=== PATIENT | female | born 1975 | race Caucasian/White ===

== ENCOUNTER → 2020-10-17 | Outpatient (CLI) | payer OTHER ==
[~2020-10-17] MED LIST: ATENOLOL25 MG PO; BASAGLAR K100 UNIT/1 SC; BOOST GLUCOSE237 ML PO; ENDOCET 5-3251 EACH PO; FERROUS SULFAT325 MG PO; HUMALOG100 UNIT/3 SC; IBUPROFEN600 MG PO; LEVOTHYROXINE50 MCG PO; SIMVASTATIN10 MG PO; VITAMIN D350 MCG PO
[2020-10-17 11:28] LABS: BUN/CREATININE RATIO 22 (0-10)
[2020-10-18 07:10] LABS: CREATININE, URINE 31.5 mg/dL (Not Estab.)
[2020-10-18 17:11] LABS: ENDOMYSIAL ANTIBODY IGA Negative (Negative); IMMUNOGLOBULIN A, QN, SERUM 352 mg/dL (87-352); T-TRANSGLUTAMINASE (TTG) IGA 2 U/mL (0-3)
== END ==
LOC: LAB 10:18
PROVIDERS: Nurse Practitioner Family
DX: E10.65 Type 1 diabetes mellitus with hyperglycemia (principal)
CPT/HCPCS: 36415; 80053; 80061; 82043; 82570; 82784; 83036; 84439; 84443

== ENCOUNTER → 2020-12-14 | Day surgery (SDC) | payer OTHER ==
[~2020-12-14] VITALS: Ht 165.1 cm; Wt 64.4 kg
[2020-12-14 08:44] LABS: HEMOGLOBIN 12.5 gm/dl (12.3-15.3); RED BLOOD COUNT 4.58 M/UL (4.00-5.10); WHITE BLOOD COUNT 4.9 K/UL (4.5-11.0)
[2020-12-14 09:00] LABS: BUN/CREATININE RATIO 26 (0-10)
== END | disposition home or self-care (01) ==
LOC: OR 07:36
PROVIDERS: Obstetrics & Gynecology
DX: N80.0 Endometriosis of uterus (principal); N84.0 Polyp of corpus uteri; E10.65 Type 1 diabetes mellitus with hyperglycemia; E10.21 Type 1 diabetes mellitus with diabetic nephropathy; I10 Essential (primary) hypertension; E78.1 Pure hyperglyceridemia; F41.9 Anxiety disorder, unspecified; F32.9 Major depressive disorder, single episode, unspecified; E03.9 Hypothyroidism, unspecified; K21.9 Gastro-esophageal reflux disease without esophagitis; Z88.8 Allergy status to other drugs, medicaments and biological substances; Z88.5 Allergy status to narcotic agent; Z79.899 Other long term (current) drug therapy
CPT/HCPCS: 80048; 81001; 82962; 84703; 85025; 93005; J2550; J2795; J7030; J7120

== ENCOUNTER → 2021-02-20 | Outpatient (CLI) | payer OTHER ==
[2021-02-20 11:22] LABS: BUN/CREATININE RATIO 28 (0-10)
== END ==
LOC: LAB 09:37
PROVIDERS: Nurse Practitioner Family
DX: E10.65 Type 1 diabetes mellitus with hyperglycemia (principal)
CPT/HCPCS: 36415; 80053; 83036

== ENCOUNTER → 2022-02-26 | Day surgery (SDC) | payer OTHER ==
[~2022-02-26] MED LIST changes: +LANTUS SOL100 UNIT/1 SQ; +OMEGA-31000 MG PO
== END | disposition home or self-care (01) ==
LOC: OR 06:40
DX: R19.5 Other fecal abnormalities (principal); E10.9 Type 1 diabetes mellitus without complications; E03.9 Hypothyroidism, unspecified; E78.00 Pure hypercholesterolemia, unspecified; Z20.822 Contact with and (suspected) exposure to COVID-19; Z88.6 Allergy status to analgesic agent; Z88.5 Allergy status to narcotic agent; Z80.0 Family history of malignant neoplasm of digestive organs
CPT/HCPCS: 36415; 82962; 84703; J2001; J2704; J7040

== ENCOUNTER → 2022-03-12 | Day surgery (SDC) | payer OTHER ==
[~2022-03-12] MED LIST changes: +HYDROCODON-ACE1 EAC4 PO
== END | disposition home or self-care (01) ==
LOC: OR 06:25
DX: D12.4 Benign neoplasm of descending colon (principal); K62.1 Rectal polyp; K64.8 Other hemorrhoids; K64.4 Residual hemorrhoidal skin tags; K62.4 Stenosis of anus and rectum; K59.03 Drug induced constipation; E10.9 Type 1 diabetes mellitus without complications; E03.9 Hypothyroidism, unspecified; E78.00 Pure hypercholesterolemia, unspecified; I10 Essential (primary) hypertension; Z88.5 Allergy status to narcotic agent; Z79.4 Long term (current) use of insulin; Z79.899 Other long term (current) drug therapy
CPT/HCPCS: 82962; 84703; J2370; J2704; J7040

== ENCOUNTER → 2022-03-21 | Outpatient (CLI) | payer OTHER | LOC: KOH-I 10:04 | DX: R74.8 Abnormal levels of other serum enzymes (principal); R16.1 Splenomegaly, not elsewhere classified | CPT/HCPCS: 76700 ==